=== PATIENT | female | born 1930 | race African-American/Black ===

== ENCOUNTER → 2016-04-05 | Outpatient (CLI) | payer MEDICARE ==
[2014-12-01 16:52] VITALS: BP 165/70
[~2016-04-05] MED LIST: ASPI81TA2 PO; GUAI600T38 PO; LOSA100T6 PO; TERB250T8 PO; VITA1CAP PO
--- NOTE | 2016-04-05 16:06 | KCIC ---
Bilateral digital screening mammograms with CAD: HISTORY Routine screening. History of right breast cancer with lumpectomy. COMPARISON Comparison is made to previous studies dated 04/05/2015, 04/15/2014 and 03/31/2013. FINDINGS Breast density category C. The skin and nipples show no abnormalities. No abnormal lymph nodes are seen in the axilla. The breast parenchyma shows heterogeneous density. There are no dominant masses, suspicious calcifications or architectural distortions. Scattered and clustered calcifications are again seen bilaterally but show no significant change. IMPRESSION No evidence of malignancy. Recommend routine annual mammographic screening. This study was interpreted with the benefit of Computerized Aided Detection (CAD). Mammography is not 100% sensitive in detecting breast cancer. Therefore, a self breast exam and a clinical breast exam are very important. A negative mammogram does not negate a clinically suspicious finding and should not result in a delay in biopsying a clinically suspicious abnormality. BI-RADS category 2. Benign. This patient's information has been entered into a reminder system for the patient to be notified with the results of this examination and a target date for her next mammograms. Electronically signed by: Karoline Napier MD (Apr 05, 2016 16:05:04)
== END | disposition home or self-care (01) ==
LOC: KCIC MAMMO 12:35
PROVIDERS: ATTEND Internal Medicine
DX: Z12.31 Encounter for screening mammogram for malignant neoplasm of breast (principal)
CPT/HCPCS: 77052; G0202; 77067

== ENCOUNTER → 2016-07-20 | Outpatient (CLI) | payer MEDICARE ==
[2014-12-01 16:52] VITALS: BP 165/70
--- NOTE | 2016-07-20 16:09 | KCIC ---
Two-view chest. Indication:Reason For StudyReason: DRY COUGH A FEW MONTHS / Spl. Instructions: Hx breast CA / History: FINDINGS: Heart size is normal. Pulmonary vasculature is within normal limits. No pleural effusion or consolidating infiltrate. No pneumothorax. The mediastinal contours are within normal limits. An old compression deformities noted in the lower thoracic spine. IMPRESSION: Negative for evidence of heart failure or pneumonia. Electronically signed by: Jase Tinajero (Jul 20, 2016 16:08:12)
== END | disposition home or self-care (01) ==
LOC: KCIC 15:36
PROVIDERS: ATTEND Internal Medicine
DX: R05 Cough (principal)
CPT/HCPCS: 71020

== ENCOUNTER → 2016-09-10 | Outpatient (CLI) | payer MEDICARE ==
[2014-12-01 16:52] VITALS: BP 165/70
[~2016-09-10] MED LIST changes: +ASPI-630 PO; -ASPI81TA2 PO; -GUAI600T38 PO; +GUAI600T47 PO
--- NOTE | 2016-09-10 16:25 | KCIC ---
Bilateral lower extremity arterial Doppler ultrasound HISTORY: Diminished pulses in both feet. TECHNIQUE: Grayscale color Doppler duplex analysis. FINDINGS: Mild diffuse calcified plaquing is identified from the bilateral common femoral arteries through the runoff vessels bilaterally. No areas of occlusion or high-grade stenosis are identified. Mostly biphasic waveforms are identified bilaterally, with the exception of monophasic waveforms in the deep femoral arteries bilaterally and within the peroneal arteries bilaterally. Small cystic appearing structure within the right popliteal fossa compatible with a Mora's cyst measuring 3.2 cm diameter. IMPRESSION: 1. Generalized atherosclerotic disease, without evidence of arterial occlusion. 2. Small right Mora's cyst incidentally noted. Electronically signed by: Heri Dc MD (09/10/2016 4:22 PM)
== END | disposition home or self-care (01) ==
LOC: KCIC US 14:23
PROVIDERS: ATTEND Internal Medicine
DX: R09.89 Other specified symptoms and signs involving the circulatory and respiratory systems (principal)
CPT/HCPCS: 93925

== ENCOUNTER → 2017-04-11 | Outpatient (CLI) | payer MEDICARE | END | disposition home or self-care (01) | LOC: KCIC MAMMO 12:38 | DX: Z12.31 Encounter for screening mammogram for malignant neoplasm of breast (principal) | CPT/HCPCS: 77063; 77067 ==

== ENCOUNTER → 2017-08-28 | Outpatient (CLI) | payer MEDICARE | END | disposition home or self-care (01) | LOC: RAD 16:15 | DX: M79.89 Other specified soft tissue disorders (principal) | CPT/HCPCS: 73610 ==

== ENCOUNTER → 2018-04-17 | Outpatient (CLI) | payer MEDICARE ==
[2017-05-23 14:54] VITALS: BP 145/55
[~2018-04-17] MED LIST changes: +ATEN25TA PO; +CHOL10003 PO; +CYAN10005 PO; +FOLI1TAB16 PO; +HYDR-2145 PO; +HYDR12.58 PO; +LOSA100T14 PO; -LOSA100T6 PO; +OMEP20TA63 PO; +POTA10TA12 PO; +POTA20TA4 PO; +POTA20TA82 PO; +TERB250T11 PO; -TERB250T8 PO
--- NOTE | 2018-04-17 17:28 | KCIC ---
Bilateral digital screening mammograms with 3-D tomosynthesis: Reason for examination: Routine screening. History of right breast cancer with lumpectomy, chemotherapy and radiation therapy in 2010. Comparison is made to previous studies dated 04/11/2017 and 04/05/2016. Bilateral mammograms in CC and oblique projections were obtained with 2-D imaging and 3-D tomosynthesis imaging on a Siemens Inspiration unit and reviewed on the workstation. Interpretation was made with the benefit of CAD. The skin and nipples show no abnormalities. No abnormal axillary lymph nodes are seen. The breast parenchyma is heterogeneously dense. (Breast density: Category C.) There are postop changes in the right breast. There appears to be a nodular density present posterior centrally superior to the nipple line in the left breast on oblique view laterally. Recommend further evaluation with ultrasound. There are no other new dominant masses, suspicious calcifications or architectural distortion. Benign scattered and clustered calcifications are present. Impression: Postop changes in the right breast. Small nodular density suggested at approximately the 2:30 B position of the left breast. Recommend further evaluation with ultrasound. Your patient's mammogram demonstrates that she has dense breast tissue (breast density category C or D), which could hide abnormalities, and if she has other risk factors for breast cancer that have been identified, she might benefit from supplemental screening tests that may be suggested by you as her ordering physician. Dense breast tissue, in and of itself, is a relatively common condition. Therefore, this information is not provided to cause undue concern, but rather to raise your awareness and to promote discussion with your patient regarding the presence of other risk factors, in addition to dense breast tissue. Your patient's mammography results will be sent to her. BI-RAD Category 0: Incomplete. Needs additional imaging evaluation. "Our facility is accredited by the [employer] Mammography Program." This patient's information has been entered into a reminder system for the patient to be notified with the results of her examination and a target date for the next mammogram. Electronically signed by: Ivania Napier MD (04/17/2018 5:24 PM) [id number]
== END | disposition home or self-care (01) ==
LOC: KCIC MAMMO 14:39
PROVIDERS: ATTEND Internal Medicine
DX: Z12.31 Encounter for screening mammogram for malignant neoplasm of breast (principal); Z85.3 Personal history of malignant neoplasm of breast
CPT/HCPCS: 77063; 77067

== ENCOUNTER → 2018-05-01 | Outpatient (CLI) | payer MEDICARE ==
[2017-05-23 14:54] VITALS: BP 145/55
--- NOTE | 2018-05-01 14:48 | KCIC ---
Left breast ultrasound: Reason for examination: Nodular density on screening mammogram. Comparison is made to mammographic exam dated 04/17/2018. Ultrasound examination was performed in the area of mammographic concern. In the 3:00 position 4 cm from the nipple, there is a small slightly lobulated irregular-appearing nodule measuring 5.2 x 2.7 cm in greatest dimension. In the 2:00 position 3 cm from the nipple, there is also a hypoechoic lobulated nodule measuring approximately 7.8 mm in greatest dimension. No other focal lesions are seen. There is a 1.7 cm lymph node in the left axilla which is osseous normal hilum. IMPRESSION: Small nodules at the 2:00 and 3:00 positions of the left breast lobulated slightly irregular margins. Abnormal appearing 1.7 cm lymph node in left axilla. Recommend ultrasound guided biopsies. BI-RADS Category 4: Suspicious. These findings were discussed with the patient and the patient's physician, Dr. Rivera, was notified about these findings on 05/01/2018 at 2:45 PM. "Our facility is accredited by the [employer] Mammography [employer]." This patient's information has been entered into a reminder system for the patient to be notified with the results of her examination and a target date for the next mammogram. Electronically signed by: Ivania Napier MD (05/01/2018 2:44 PM) [facility]
== END | disposition home or self-care (01) ==
LOC: KCIC US 12:48
PROVIDERS: ATTEND Internal Medicine
DX: N63.21 Unspecified lump in the left breast, upper outer quadrant (principal); I10 Essential (primary) hypertension; J45.909 Unspecified asthma, uncomplicated; M19.90 Unspecified osteoarthritis, unspecified site; Z85.3 Personal history of malignant neoplasm of breast
CPT/HCPCS: 76641

== ENCOUNTER → 2018-05-29 | Outpatient (CLI) | payer MEDICARE ==
[2017-05-23 14:54] VITALS: BP 145/55
[~2018-05-29] MED LIST changes: +FAMO-63 PO; +LIDOCAINE 1% Multi-Dose 20 ML VIAL. INJ ONE; +LIDOCAINE 1%/EPI 1:100,000 20 ML VIAL. INJ ONE; +LIDOCAINE 2%/EPI 1:100,000 20 ML VIAL. IJ ONE
--- NOTE | 2018-06-03 16:08 | PATHOLOGY ---
[facility] Accession Number: [id number] . 01 Material submitted: . PART A: LEFT BREAST, 3:00, 4CFN PART B: LEFT BREAST, 2:00, 3CFN PART C: LEFT AXILLA LYMPH NODE . 01 Clinical history: . A. Left breast mass B. Left breast mass C. Left axilla lymph node . 02 Diagnosis: A. Breast tissue, left breast mass 3:00 needle biopsies: - Ancient fibroadenoma. - Stromal fibrosis and focal mild duct ectasia. . B. Breast tissue, left breast mass 2:00 needle biopsies: - Ancient fibroadenoma. - Focal stromal fibrosis and lobular chronic inflammation. . C. Lymph node and adipose tissue, left axillary lymph node biopsy: - Reactive lymphoid hyperplasia. See comment. (JPM/db/pit; 05/30/2018) LBQ/06/03/2018 . 02 Comment: Sections of the left breast mass at 3:00 needle biopsy reveal an ancient fibroadenoma. Sections of the left breast mass at 2:00 needle biopsy also reveal an ancient fibroadenoma. Sections of the left axillary lymph node biopsy reveal lymph node. There is preservation of the lymph node architecture. There are lymphoid follicles present containing germinal centers. The germinal centers are surrounded by a mantle of small lymphocytes. The paracortex is composed predominantly of small lymphocytes having a high N/C ratio and rounded to slightly irregular nuclei. There are no granulomas. There is no morphologic evidence of metastatic carcinoma. A panel of immunoperoxidase stains is obtained on block C1 and yield the following results: . AE1/AE3: No evidence of metastatic carcinoma. CD20: Lymphoid follicles and germinal centers positive; small population of small lymphocytes in interfollicular areas positive. CD3: Paracortical lymphocytes positive; small population of lymphocytes within germinal centers positive. CD5: Paracortical lymphocytes positive; small population of lymphocytes within germinal centers positive, similar to CD3. CD10: Germinal center lymphocytes positive. BCL6: Germinal center lymphocytes positive. BCL2: Paracortical lymphocytes positive; germinal center lymphocytes negative. BD23: Follicular dendritie meshwork positive. Cyclin D1: Lymphoid cells negative. . The morphologic and immunophenotypic findings are supportive of the diagnosis of reactive lymphoid hyperplasia. The case is also examined by Dr. Ami Yoo, who concurs with the diagnosis. (JPM:[facility] 06/03/2018) . 02 Electronically signed: . Uzair Villalobos MD, Pathologist NPI- [id number] . 01 Gross description: . A. Received in formalin labeled "Danya Cherry, left breast 3:00, 4 CFN," are multiple needle cores of yellow-whittington fibrofatty tissue measuring 2.4 x 2.7 x 0.4 cm in aggregate dimensions. The tissue is submitted in its entirety in cassette A1 through A3. The cold ischemic time is 3 minutes. The total formalin fixation time is 10 hours and 15 minutes. . . B. Received in formalin labeled "Danya Cherry, left breast 2:00, 3 CFN," are multiple needle cores of yellow-whittington fibrofatty tissue measuring 2.0 x 1.5 x 0.3 cm in aggregate dimensions. The tissue is submitted in its entirety in cassette B1 through B3. The cold ischemic time is 3 minutes. The total formalin fixation time is 10 hours and 5 minutes. . C. Received in formalin labeled "Danya Cherry, left axilla LN," is a single needle core of munson soft tissue measuring 1.2 cm in length and less than 0.1 cm in diameter. The tissue is submitted in its entirety in cassette C1. Additionally received in the same container are multiple fragments of needle cores of munson soft tissue measuring 0.5 x 0.1 x 0.1 cm in aggregate dimensions. The specimen is filtered and entirely submitted in cassette C2. (TSD; 05/29/2018) TOB/TOB . 02 Pathologist provided ICD-10: D24.2, N60.32, N61.0 . 02 CPT . 539809, 943778, [id number] Specimen Comment: A courtesy copy of this report has been sent to Specimen Comment: [phone], , . Specimen Comment: Report sent to , and Specimen Comment: A duplicate report has been generated due to demographic updates. [facility]formed at: [facility] [address], [place] [id number] MD Kapil Flor MD Phone: [phone] [facility]formed at: [facility] [address] [place], [place] [id number] MD Uzair Villalobos MD Phone: [phone]
--- NOTE | 2018-06-12 11:17 | RAD ---
ltrasound-guided left breast biopsy #1, 05/29/2018: History: Suspicious breast lesions A prior study demonstrated a small hypoechoic nodule at the 3:00 location located approximately 4 cm with the nipple. Under local anesthesia, aseptic conditions and sonographic guidance the Suros ATEC biopsy instrument was passed into the posterior aspect of this process via a lateral approach. Multiple 12- gauge vacuum-assisted core samples were obtained and sent to pathology for evaluation. A cylindrical shaped biopsy marker was deposited at the biopsy site. The biopsy instrument was then removed and hemostasis obtained. Ultrasound-guided left breast biopsy #2, 05/29/2018: The previous ultrasound study demonstrated a larger hypoechoic nodule at the 2: 00 location approximately 3 cm from the nipple. Under local anesthesia, aseptic conditions and sonographic guidance we targeted this lesion. The Suros ATEC biopsy instrument was passed into this lesion and multiple 12-gauge vacuum- assisted core samples were obtained. They were sent to pathology for evaluation. A T-shaped biopsy marker was deposited the biopsy site. The biopsy instrument was then removed and hemostasis obtained. Ultrasound-guided left axillary lymph node biopsy, 05/29/2018: Previous studies demonstrated a mildly enlarged left axillary lymph node demonstrating absence of a normal fatty hilum. Under local anesthesia, aseptic conditions and sonographic guidance three 18-gauge core samples were obtained from this node and sent to pathology for evaluation. A biopsy marker was then deposited within the noted as requested. Hemostasis was then obtained. Two-view postprocedural digital mammograms were then obtained to document position of the biopsy markers. The patient tolerated the procedures well and left the department in good condition. Note: The subsequent pathology report indicated that the 2 breast biopsies both demonstrated fibroadenomas. The biopsied lymph node demonstrated reactive lymphoid hyperplasia without evidence of malignancy. These are considered to be concordant findings. [facility]
== END | disposition home or self-care (01) ==
LOC: US 12:15
PROVIDERS: ATTEND Surgery
DX: D24.2 Benign neoplasm of left breast (principal); N60.32 Fibrosclerosis of left breast; N60.42 Mammary duct ectasia of left breast; N61.0 Mastitis without abscess; Z88.8 Allergy status to other drugs, medicaments and biological substances; R59.0 Localized enlarged lymph nodes; I11.9 Hypertensive heart disease without heart failure
CPT/HCPCS: 19083; 19084; 38505; 76942; 77065; 88305; C1713; 10005; 19081; 19082

== ENCOUNTER 2018-07-09 11:00 | Emergency (ER) | payer MEDICARE ==
[~2018-07-09] VITALS: Ht 162.6 cm; Wt 59.0 kg
[~2018-07-09 11:00] MED LIST changes: -FAMO-63 PO; -LIDOCAINE 1% Multi-Dose 20 ML VIAL. INJ ONE; -LIDOCAINE 1%/EPI 1:100,000 20 ML VIAL. INJ ONE; -LIDOCAINE 2%/EPI 1:100,000 20 ML VIAL. IJ ONE
[2018-07-09] MEDS ORDERED: FAMOTIDINE 20 MG/2 ML VIAL IVP ONE (11:30)
[2018-07-09] MEDS ORDERED: ASPIRIN 325 MG TABLET PO ONE (11:30)
--- NOTE | 2018-07-09 11:37 | EKG ---
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
[2018-07-09 11:46] LABS: BASO % 1 % (0-3); EOS % 1 % (0-3); HEMATOCRIT 32.7 % (36.0-47.0); HEMOGLOBIN 10.8 g/dL (12.0-15.5); LYMPH # 1.1 x10^3/uL (1.0-4.8); LYMPH % 22 % (24-48); MEAN CORPUSCULAR HEMOGLOBIN 31 pg (25-35); MEAN CORPUSCULAR HGB CONC 33 g/dL (31-37); MEAN CORPUSCULAR VOLUME 93 fL (79-100); MONO # 0.4 x10^3/uL (0.0-1.1); MONO % 7 % (0-9); NEUT # 3.5 x10^3uL (1.8-7.7); NEUT % 69 % (31-73); PLATELET COUNT 255 x10^3/uL (140-400); RED BLOOD COUNT 3.52 x10^6/uL (3.50-5.40)
[2018-07-09 11:57] LABS: CALCIUM 9.3 mg/dL (8.5-10.1); CREATININE 0.8 mg/dL (0.6-1.0); GFR 82.3; POTASSIUM 3.5 mmol/L (3.5-5.1)
--- NOTE | 2018-07-09 11:58 | PHYS DOC ---
Past Medical History Past Medical History: Asthma, Cancer, Hypertension, Other Additional Past Medical Histor: BREAST CANCER TREATED W/ RADIATION & CHEMO Past Surgical History: Other Additional Past Surgical Histo: LUMPECTOMY RIGHT BREAST Alcohol Use: None Drug Use: None Adult General Chief Complaint Chief Complaint: CHEST PAIN HPI HPI Patient is a 88 year old female who presents with chest pain. Patient states that she developed chest pain which woke her up from sleep around three o'clock in the morning yesterday. Patient reports that the pain is located midsternal and under her right breast. Patient states that the pain is intermittent and lasts for about 20 to 30 minutes at a time and then it subsides on its own. Patient does not currently have any pain but states that the pain can get up to a 10/10 at its worst. Patient states that the pain is worse with movement. Denies any alleviating factors or radiation of the pain. Patient also reports upper abdomial pain. Patient states that she has a history of acid reflux and thought her symptoms may be due to her reflux, however, she took her Prilosec without any relief. Denies palpitations, nausea, vomiting, shortness of breath, and lower extremity edema. Review of Systems Review of Systems Constitutional: Denies fever or chills Eyes: Denies change in visual acuity, or eye pain HENT: Denies nasal congestion or sore throat Respiratory: Denies shortness of breath. Reports chronic dry cough. Cardiovascular: Reports chest pain. Denies palpitations GI: Denies nausea, vomiting, or diarrhea : Denies dysuria or hematuria Musculoskeletal: Denies back pain. Reports chronic joint pain. Integument: Denies rash or skin lesions Neurologic: Denies headache, focal weakness or sensory changes Complete systems were reviewed and found to be within normal limits, except as documented in this note. Current Medications Current Medications Current Medications Medications (Trade) Dose Ordered Sig/Shiraz Start Time Stop Time Status Last Admin Dose Admin Aspirin (Matilde Aspirin) 325 mg 1X ONCE 07/09/18 11:30 07/09/18 11:34 DC 07/09/18 11:50 325 MG Famotidine (Pepcid Vial) 20 mg 1X ONCE 07/09/18 11:30 07/09/18 11:34 DC 07/09/18 11:50 20 MG Allergies Allergies Allergies Coded Allergies Type Severity Reaction Last Updated Verified lisinopril Allergy Intermediate COUGH 05/22/17 Yes nifedipine Allergy Intermediate LEG EDEMA 05/22/17 Yes Physical Exam Physical Exam Constitutional: Well developed, well nourished, no acute distress, non-toxic appearance. HENT: Normocephalic, atraumatic, oropharynx moist, nose normal. Eyes: PERRL, conjunctiva normal, no discharge. Neck: Normal range of motion, no tenderness, supple, no stridor. Cardiovascular: Heart rate regular rhythm, no murmur. No chest wall tenderness on palpation. Lungs & Thorax: Bilateral breath sounds clear to auscultation. Abdomen: Soft, tenderness of bilateral upper abdominal quadrants on palpation. No rebound, guarding, or rigidity. Skin: Warm, dry, no rash. Back: No tenderness, no CVA tenderness. Extremities: No tenderness, ROM intact, no edema. Neurologic: Alert and oriented X3, normal motor function, normal sensory function, no focal deficits noted. Psychologic: Affect normal. Speech normal. Current Patient Data Vital Signs Vital Signs Date Time Temp Pulse Resp B/P (MAP) Pulse Ox O2 Delivery O2 Flow Rate FiO2 07/09/18 14:28 68 24 171/72 (105) 99 07/09/18 11:00 97.8 Room Air 97.8 Lab Values Laboratory Tests Test 07/09/18 11:32 07/09/18 13:00 White Blood Count 5.0 x10^3/uL (4.0-11.0) Red Blood Count 3.52 x10^6/uL (3.50-5.40) Hemoglobin 10.8 g/dL (12.0-15.5) L Hematocrit 32.7 % (36.0-47.0) L Mean Corpuscular Volume 93 fL (79-100) Mean Corpuscular Hemoglobin 31 pg (25-35) Mean Corpuscular Hemoglobin Concent 33 g/dL (31-37) Red Cell Distribution Width 15.0 % (11.5-14.5) H Platelet Count 255 x10^3/uL (140-400) Neutrophils (%) (Auto) 69 % (31-73) Lymphocytes (%) (Auto) 22 % (24-48) L Monocytes (%) (Auto) 7 % (0-9) Eosinophils (%) (Auto) 1 % (0-3) Basophils (%) (Auto) 1 % (0-3) Neutrophils # (Auto) 3.5 x10^3uL (1.8-7.7) Lymphocytes # (Auto) 1.1 x10^3/uL (1.0-4.8) Monocytes # (Auto) 0.4 x10^3/uL (0.0-1.1) Eosinophils # (Auto) 0.0 x10^3/uL (0.0-0.7) Basophils # (Auto) 0.0 x10^3/uL (0.0-0.2) Sodium Level 140 mmol/L (136-145) Potassium Level 3.5 mmol/L (3.5-5.1) Chloride Level 101 mmol/L (98-107) Carbon Dioxide Level 27 mmol/L (21-32) Anion Gap 12 (6-14) Blood Urea Nitrogen 14 mg/dL (7-20) Creatinine 0.8 mg/dL (0.6-1.0) Estimated GFR (Cockcroft-Gault) 82.3 BUN/Creatinine Ratio 18 (6-20) Glucose Level 91 mg/dL (70-99) Calcium Level 9.3 mg/dL (8.5-10.1) Magnesium Level 1.9 mg/dL (1.8-2.4) Total Bilirubin 0.4 mg/dL (0.2-1.0) Aspartate Amino Transferase (AST) 15 U/L (15-37) Alanine Aminotransferase (ALT) 12 U/L (14-59) L Alkaline Phosphatase 63 U/L (46-116) Creatine Kinase 54 U/L (26-192) Creatine Kinase MB (Mass) 0.6 ng/mL (0.0-3.6) Creatine Kinase MB Relative Index % (0-4) Troponin I Quantitative < 0.017 ng/mL (0.000-0.055) < 0.017 ng/mL (0.000-0.055) OZ-Yzr-B-Type Natriuretic Peptide 487 pg/mL (0-449) H Total Protein 7.7 g/dL (6.4-8.2) Albumin 3.5 g/dL (3.4-5.0) Albumin/Globulin Ratio 0.8 (1.0-1.7) L Lipase 108 U/L (73-393) Laboratory Tests 07/09/18 11:32 Laboratory Tests 07/09/18 11:32 EKG EKG @1110 NSR at 76bpm, NO ST elevation Radiology/Procedures Radiology/Procedures PROCEDURE: CHEST PA & LATERAL Chest, 2 views, 07/09/2018: HISTORY: Chest pain Comparison is made to a study from 05/21/2017. The heart is mildly enlarged. There is calcific plaquing the aorta. The pulmonary vascularity is normal. There is mild unchanged blunting of the right lateral costophrenic angle probably due to scarring. The posterior costophrenic angles are sharp without evidence of pleural fluid. No pulmonary infiltrate is seen. The bony structures are demineralized. A lower thoracic vertebral compression fracture at approximately T11 is unchanged since the CT study from 05/22/2017. IMPRESSION: 1. Mild cardiomegaly and aortic atherosclerosis 2. Mild right basilar scarring. 3. No acute infiltrates. Electronically signed by: Omid Massey MD (07/09/2018 12:00 PM) [facility] Course & Med Decision Making Course & Med Decision Making Patient is an 88 year old female who presents to the ED for chest pain. Patient given 325mg Aspirin PO and 20mg Pepcid IV. Heart score calculated to be 3. Pertinent Labs and Imaging studies reviewed. ( See chart for details). First and second troponin's noted to be negative. Offered patient admission, however, patient feels comfortable going home after second troponin came back negative. Patient agrees to follow up with cardiology outpatient. Patient stable for discharge with outpatient follow-up with PCP. Discussed findings and plan with patient and family, who acknowledge understanding and agreement. Dragon Disclaimer Dragon Disclaimer This electronic medical record was generated, in whole or in part, using a voice recognition dictation system. Departure Departure Impression: Primary Impression: Chest pain Disposition: HOME, SELF-CARE Condition: STABLE Referrals: HAZEL JOHNSON MD (PCP) COMFORT HWANG MD Patient Instructions: Chest Pain (Nonspecific), [id number] Scripts Famotidine (PEPCID) 20 Mg Tablet 20 MG PO BID, #20 TAB Prov: HAZEL HENDRICKSON DO 07/09/18 Problem Qualifiers Primary Impression: Chest pain Chest pain type: unspecified Qualified Codes: R07.9 - Chest pain, unspecified HAZEL HENDRICKSON DO Jul 09, 2018 11:58
[2018-07-09 12:02] LABS: ALBUMIN 3.5 g/dL (3.4-5.0); ALBUMIN/GLOBULIN RATIO 0.8 (1.0-1.7); MAGNESIUM 1.9 mg/dL (1.8-2.4); TOTAL BILIRUBIN 0.4 mg/dL (0.2-1.0); TOTAL PROTEIN 7.7 g/dL (6.4-8.2)
--- NOTE | 2018-07-09 12:03 | RAD ---
Chest, 2 views, 07/09/2018: HISTORY: Chest pain Comparison is made to a study from 05/21/2017. The heart is mildly enlarged. There is calcific plaquing the aorta. The pulmonary vascularity is normal. There is mild unchanged blunting of the right lateral costophrenic angle probably due to scarring. The posterior costophrenic angles are sharp without evidence of pleural fluid. No pulmonary infiltrate is seen. The bony structures are demineralized. A lower thoracic vertebral compression fracture at approximately T11 is unchanged since the CT study from 05/22/2017. IMPRESSION: 1. Mild cardiomegaly and aortic atherosclerosis 2. Mild right basilar scarring. 3. No acute infiltrates. Electronically signed by: Omid Massey MD (07/09/2018 12:00 PM) [facility]
[2018-07-09 12:12] LABS: CREATINE KINASE 54 U/L (26-192)
[2018-07-09 14:28] VITALS: BP 171/72
[2018-07-09] MEDS ORDERED: FAMO-63 PO (14:56)
== END 2018-07-09 15:05 | disposition home or self-care (01) ==
LOC: ER 11:00
DX: R07.89 Other chest pain (principal); J45.909 Unspecified asthma, uncomplicated; I10 Essential (primary) hypertension; Z79.82 Long term (current) use of aspirin; Z88.8 Allergy status to other drugs, medicaments and biological substances
CPT/HCPCS: 36415; 71046; 80053; 82553; 83690; 83735; 83880; 84484; 85025; 93005; 96374; 99285; J3490

== ENCOUNTER → 2019-02-10 | Outpatient (CLI) | payer MEDICARE ==
[2018-10-24 15:00] VITALS: BP 145/79
[~2019-02-10] MED LIST changes: +AMLO2.5T5 PO; +ATOR20TA58 PO; +CARV25TA2 PO; +CLOP75TA PO; +CYAN-25 PO; -CYAN10005 PO; +FAMO-63 PO; +RANI-376 PO
--- NOTE | 2019-02-10 13:08 | CARD ---
MR#: [id number] Date of Study: 02/10/2019 Ordering Physician: COMFORT HWANG, Referring Physician: COMFORT HWANG, Tech: Roxy Mcbride MALLIKA APPROVED REPORT EXAM: Two-dimensional and M-mode echocardiogram with Doppler and color Doppler. Other Information Quality : Good INDICATION Chest Pain 2D DIMENSIONS RVDd2.8 (2.9-3.5cm)Left Atrium(2D)3.8 (1.6-4.0cm) IVSd1.1 (0.7-1.1cm)Aortic Root(2D)2.5 (2.0-3.7cm) LVDd4.5 (3.9-5.9cm)LVOT Diameter1.9 (1.8-2.4cm) PWd1.0 (0.7-1.1cm)LVDs3.7 (2.5-4.0cm) FS (%) 18.3 %SV34.7 ml LVEF(%)38.1 (>50%) Aortic Valve AoV Peak Balbir.140.1cm/sAoV VTI22.6cm AO Peak GR.7.8mmHgLVOT Peak Balbir.82.4cm/s AO Mean GR.4mmHgAVA (VMAX)1.64cm2 AI P 1/2 Qdok842wd Mitral Valve MV E Xdzwzgfg463.1cm/sMV DECEL BVUH529wl MV A Znxlbhbb53.1cm/sE/A Ratio1.5 Tricuspid Valve TR P. Rjgsgpda049lb/sRAP TOAMOYYY8ybUh TR Peak Gr.75tuVtOKBS94hlWv Pulmonary Vein S1 Qvwliakf071.1cm/sD2 Xhhanilc46.9cm/s LEFT VENTRICLE The left ventricle is normal size. There is normal left ventricular wall thickness. The systolic func tion is mildly to moderately impaired. EF 40-45% There is global hypokinesis of the left ventricle. T echnically difficult to determine wall motion due to atrial fibrillation. Tissue Doppler imaging reve als moderate left ventricular diastolic dysfunction. RIGHT VENTRICLE The right ventricle is normal size. The right ventricular systolic function is normal. ATRIA The left atrium size is normal. The right atrium size is normal. The interatrial septum is intact wit h no evidence for an atrial septal defect or patent foramen ovale as noted on 2-D or Doppler imaging. AORTIC VALVE The aortic valve is mildly thickened but opens well. Doppler and Color Flow revealed mild to moderate eccentric aortic regurgitation. There is no significant aortic valvular stenosis. MITRAL VALVE The mitral valve is thickened but opens well. There is no evidence of mitral valve prolapse. There is no mitral valve stenosis. Doppler and Color-flow revealed severe mitral regurgitation. TRICUSPID VALVE The tricuspid valve is normal in structure and function. Doppler and Color Flow revealed moderate tri cuspid regurgitation. There is moderate-severe pulmonary hypertension. The PA pressure was estimated at 62 mmHg. There is no tricuspid valve stenosis. PULMONIC VALVE The pulmonary valve is normal in structure and function. Doppler and Color Flow revealed mild pulmoni c valvular regurgitation. There is no pulmonic valvular stenosis. GREAT VESSELS The aortic root is normal in size. The ascending aorta is normal in size. The IVC is normal in size a nd collapses >50% with inspiration. PERICARDIAL EFFUSION There is no evidence of significant pericardial effusion. Critical Notification Critical Value: No <Conclusion> The systolic function is mildly to moderately impaired. EF 40-45% There is global hypokinesis of the left ventricle. Technically difficult to determine wall motion due to atrial fibrillation. Doppler and Color Flow revealed mild to moderate eccentric aortic regurgitation. Doppler and Color-flow revealed severe mitral regurgitation. Doppler and Color Flow revealed moderate tricuspid regurgitation. There is moderate-severe pulmonary hypertension. The PA pressure was estimated at 62 mmHg. Signed by : Gus Vasquez, Electronically Approved : 02/10/2019 13:07:34
== END | disposition home or self-care (01) ==
LOC: ECHO 10:48
PROVIDERS: ATTEND Internal Medicine Cardiovascular Disease
DX: I08.8 Other rheumatic multiple valve diseases (principal); I48.91 Unspecified atrial fibrillation
CPT/HCPCS: 93306

== ENCOUNTER → 2019-04-22 | Outpatient (CLI) | payer MEDICARE ==
[2018-10-24 15:00] VITALS: BP 145/79
[~2019-04-22] MED LIST changes: -POTA20TA82 PO
--- NOTE | 2019-04-24 06:42 | RAD ---
MR#: [id number] Date of Study: 04/22/2019 Ordering Physician: COMFORT HWANG, Referring Physician: COMFORT HWANG, Tech: NISA Osuan, RDSC, t APPROVED REPORT Patient Location: OUT-PATIENT Indications Rest Pain: Risk Factors Hypertension VELOCITY AND DOPPLER WAVEFORM ANALYSIS RIGHT cm/secWaveformSeverity LEFT cm/secWaveform Severity pCFA 128.3BiphasicpCFA 127.3Biphasic Prof Fem Art. 224.1Prof Fem Art. 94.7 Fem Art Prox. 100.9BiphasicFem Art Prox. 79.5Biphasic Fem Art Mid. 131.4BiphasicFem Art Mid. 103.4Biphasic Fem Art Dist. 124.9BiphasicFem Art Dist. 113.8Biphasic Pop Art(Fossa) 101.8BiphasicPop Art(AK) 88.2Biphasic TSO Dist. 68.0BiphasicPTA Dist. 76.6Biphasic Per Art Dist.63.6BiphasicPer Art Dist.80.3Biphasic ROSE Dist. 61.9BiphasicATA Dist. 111.1Biphasic DPA 39BiphasicDPA 49Biphasic Findings Grayscale images of the bilateral lower extremity arterial vessels demonstrate mild diffuse intimal h yperplasia and diffuse plaque. Incidental note is made of bilateral popliteal fossa Mora's cyst measuring approximately 4 x 1 cm. Spectral waveforms are biphasic throughout the lower extremity arterial course. There is three-vessel runoff below the knee bilaterally. No focal high-grade stenosis is identified. Critical Notification Critical Value: No <Conclusion> 1. No significant bilateral lower extremity arterial disease with three-vessel runoff. 2. Incidental note is made of bilateral popliteal fossa Mora's cyst Signed by : Gus Vasquez, Electronically Approved : 04/24/2019 06:41:48
== END | disposition home or self-care (01) ==
LOC: US 09:29
PROVIDERS: ATTEND Internal Medicine Cardiovascular Disease
DX: I70.293 Other atherosclerosis of native arteries of extremities, bilateral legs (principal); M71.22 Synovial cyst of popliteal space [Baker], left knee; M71.21 Synovial cyst of popliteal space [Baker], right knee
CPT/HCPCS: 93925

== ENCOUNTER → 2019-05-22 | Outpatient (CLI) | payer MEDICARE ==
[2018-10-24 15:00] VITALS: BP 145/79
--- NOTE | 2019-05-22 15:05 | KCIC ---
EXAM: Bilateral digital screening mammogram with tomosynthesis. HISTORY: 89-year-old female presents for screening mammography. TECHNIQUE: Full-field digital craniocaudal and mediolateral oblique 2D and 3D tomosynthesis images of both breasts are obtained for evaluation. Computer aided detection with DropmysiteD software version 9.3 was applied. COMPARISON: 04/17/2018 BREAST PARENCHYMAL DENSITY: Level C - Heterogeneously dense. FINDINGS: There has been slight interval increase in nodularity within the posterior 11:00 position of the right breast containing clustered microcalcifications. There additional areas of nodularity and asymmetry which are stable in appearance. There are multiple scattered and clustered microcalcifications which are not significantly changed. There are biopsy clips. IMPRESSION: BI-RADS Category 0: Additional imaging needed. RECOMMENDATION: Further evaluation with a right breast sonogram is recommended to assess nodularity at the posterior 11:00 position. If your mammogram demonstrates that you have dense breast tissue, which could hide abnormalities, and if you have other risk factors for breast cancer that have been identified, you might benefit from supplemental screening tests that may be suggested by your ordering physician. Dense breast tissue, in and of itself, is a relatively common condition. This information is not provided to cause undue concern, but rather to raise your awareness and to promote discussion with your physician regarding the presence of other risk factors, in addition to dense breast tissue. A report of your mammography results will be sent to you and your physician. You should contact your physician if you have any questions or concerns regarding this report. Mammography is a sensitive method for finding small breast cancers, but it does not detect them all and is not a substitute for careful clinical examination. A negative mammogram does not negate a clinically suspicious finding and should not result in delay in biopsying a clinically suspicious abnormality. PQRS compliance statement - Patient information was entered into a reminder system with a target due date for the next mammogram. "Our facility is accredited by the [employer] Mammography [employer]." Electronically signed by: Cassy Gomez MD (05/22/2019 3:02 PM) [email or web address]
== END ==
LOC: KCIC MAMMO 13:22
PROVIDERS: ATTEND Family Medicine
DX: Z12.31 Encounter for screening mammogram for malignant neoplasm of breast (principal)
CPT/HCPCS: 77063; 77067

== ENCOUNTER → 2019-05-26 | Outpatient (CLI) | payer MEDICARE ==
[2018-10-24 15:00] VITALS: BP 145/79
--- NOTE | 2019-05-26 16:00 | KCIC ---
Right breast ultrasound: Reason for examination: Clustered calcifications with possible associated nodule. Comparison is made to mammographic exam dated 05/14/2019. Ultrasound examination of the right breast and right axilla was performed. There are calcified nodules at the 10:00 position 4 cm from the nipple corresponding to the calcified degenerated fibroadenoma seen mammographically. There are some fibrocystic changes and ductal ectasia at the 11:00 position 2 cm from the nipple which have a benign appearance. In the area of mammographic concern, a discrete abnormality is not identified. IMPRESSION: Clustered calcifications with associated nodularity at the 10:00 position posteriorly in the right breast mammographically. A nodule was not seen at this site sonographically but further evaluation with stereotactic biopsy of the calcifications is recommended. BI-RADS Category 4: Suspicious. These findings were discussed with the patient and patient's physician, Dr. Leatha Vanegas, was notified about these findings on 05/26/2019 at 1555. "Our facility is accredited by the [employer] Mammography Program." Electronically signed by: Ivania Napier MD (05/26/2019 3:57 PM) [email or web address]
--- NOTE | 2019-05-26 17:06 | KCIC ---
Pelvic ultrasound HISTORY: Postmenopausal bleeding. COMPARISON: None. Transabdominal scan: The uterus and ovaries are poorly seen. Endovaginal scan: Uterus measures 5.1 x 2.0 x 4.0 cm. Endometrial stripe measures 1 mm. The cervix appears thickened and heterogeneous with some reflectors suggesting calcification. There may also be a small amount of fluid in the cervix. The right and left ovaries are not visualized. Mild free pelvic fluid in the cul-de-sac. IMPRESSION: 1. Thick and heterogeneous appearance of the cervix with calcifications and possibly mild fluid. Significance uncertain, infectious or inflammatory etiology is possible, and a mass is difficult to exclude. Consider gynecologic consultation. 2. Nonvisualization of right and left ovaries. Electronically signed by: Heri Dc MD (05/26/2019 5:03 PM) [id number]
== END | disposition home or self-care (01) ==
LOC: KCIC US 10:09
PROVIDERS: ATTEND Family Medicine
DX: N63.11 Unspecified lump in the right breast, upper outer quadrant (principal); N88.8 Other specified noninflammatory disorders of cervix uteri; D24.1 Benign neoplasm of right breast; N60.41 Mammary duct ectasia of right breast; Z85.3 Personal history of malignant neoplasm of breast
CPT/HCPCS: 76641; 76830; 76856

== ENCOUNTER 2019-11-04 14:30 | Emergency (ER) | payer MEDICARE ==
[~2019-11-04] VITALS: Ht 165.1 cm; Wt 56.8 kg
[~2019-11-04 14:30] MED LIST changes: -TERB250T11 PO; +TERB250T84 PO
[2019-11-04] MEDS ORDERED: LABETALOL 20 MG/4 ML DISP.SYRIN. IVP ONE (18:00)
--- NOTE | 2019-11-04 18:12 | RAD ---
INDICATION: Reason: chest pain / Spl. Instructions: / History: COMPARISON: September 2018 FINDINGS: Single view of chest obtained. Calcific atherosclerosis with mild enlargement of the cardiac silhouette. Mild interstitial opacities bilaterally with more focal component at right lung base IMPRESSION: * Mild interstitial opacities bilaterally with more focal component in the right lung base. This could be seen with mild edema or interstitial infiltrate. Electronically signed by: Ish Frias MD (11/04/2019 6:09 PM) [id number]
[2019-11-04 18:13] LABS: BASO % 1 % (0-3); EOS # 0.1 x10^3/uL (0.0-0.7); EOS % 1 % (0-3); HEMATOCRIT 34.1 % (36.0-47.0); HEMOGLOBIN 11.4 g/dL (12.0-15.5); LYMPH # 1.3 x10^3/uL (1.0-4.8); LYMPH % 21 % (24-48); MEAN CORPUSCULAR HEMOGLOBIN 32 pg (25-35); MEAN CORPUSCULAR HGB CONC 34 g/dL (31-37); MEAN CORPUSCULAR VOLUME 94 fL (79-100); MONO # 0.6 x10^3/uL (0.0-1.1); MONO % 9 % (0-9); NEUT # 4.2 x10^3/uL (1.8-7.7); NEUT % 69 % (31-73); PLATELET COUNT 231 x10^3/uL (140-400); RED BLOOD COUNT 3.61 x10^6/uL (3.50-5.40); RED CELL DISTRIBUTION WIDTH 15.6 % (11.5-14.5); WHITE BLOOD COUNT 6.2 x10^3/uL (4.0-11.0)
[2019-11-04 18:24] LABS: BILIRUBIN,URINE NEGATIVE (NEG); CLARITY,URINE CLEAR; COLOR,URINE YELLOW; NITRITE,URINE NEGATIVE (NEG); PH,URINE 6.5 (<5.0-8.0); PROTEIN,URINE NEGATIVE (NEG-TRACE); UROBILINOGEN,URINE 0.2 mg/dL (0.2 mg/dL)
[2019-11-04 18:24] LABS: PROTHROMBIN TIME PATIENT 12.9 SEC (11.7-14.0)
[2019-11-04 18:28] LABS: CALCIUM 9.2 mg/dL (8.5-10.1); CREATININE 0.8 mg/dL (0.6-1.0); GFR 82.1; POTASSIUM 4.1 mmol/L (3.5-5.1)
[2019-11-04 18:34] LABS: ALBUMIN 3.5 g/dL (3.4-5.0); TOTAL BILIRUBIN 0.3 mg/dL (0.2-1.0)
[2019-11-04 18:36] LABS: BACTERIA,URINE MANY /HPF (0-FEW); SQUAMOUS EPITHELIAL CELL,UR MANY /LPF
[2019-11-04 18:37] LABS: RBC,URINE 0 /HPF (0-2); WBC,URINE OCC /HPF (0-4)
[2019-11-04 18:59] LABS: CREATINE KINASE 66 U/L (26-192)
--- NOTE | 2019-11-04 19:05 | RAD ---
INDICATION: Reason: dizzy / Spl. Instructions: / History: COMPARISON: None. TECHNIQUE: Axial CT images obtained through the head without intravenous contrast. One or more of the following individualized dose reduction techniques were utilized for this examination: 1. Automated exposure control; 2. Adjustment of the mA and/or kV according to patient size; 3. Use of iterative reconstruction technique. FINDINGS: No intracranial hemorrhage. No midline shift. Basal cisterns patents. Ventricles and sulci are globally prominent. No acute osseous abnormality. Orbits and paranasal sinuses unremarkable. Scattered foci of low attenuation within the white matter. IMPRESSION: 1. No acute intracranial hemorrhage. 2. Scattered regions of low attenuation within the white matter. Non-specific in nature but frequently secondary to chronic small vessel ischemic disease. 3. Prominence of ventricles and sulci which is frequently secondary to age related volume loss. 4. Partial opacification of the left mastoid air cells. Could be from congestion but would correlate with symptoms to ensure that there is not mastoiditis. Electronically signed by: Ish Frias MD (11/04/2019 7:02 PM) [id number]
--- NOTE | 2019-11-04 19:26 | PHYS DOC ---
Past Medical History Past Medical History: Asthma, Cancer, Hypertension, Other Additional Past Medical Histor: BREAST CANCER TREATED W/ RADIATION & CHEMO (OPAL COATES APRN) Past Surgical History: Other Additional Past Surgical Histo: LUMPECTOMY RIGHT BREAST (OPAL COATES APRN) Smoking Status: Never Smoker Alcohol Use: None Drug Use: None (OPAL COATES APRN) General Adult EDM: Chief Complaint: DIZZY/LIGHT HEADED HPI: HPI: Patient is a 89 year old AA female who presents to the emergency department with complaints of intermittent dizziness and generalized weakness that has been ongoing for the last 3 weeks. Patient states that her blood pressure has been high today with a reported blood pressure of 187/91 at home. Patient states she had been diagnosed with COVID-19 on September 292019 but denies ever having any symptoms that affected her. Denies any chest pain, palpitations, shortness of breath, wheezing, cough, numbness, tingling, weakness, rash, or fever. She currently denies any pain. Patient denies any problems speaking or swallowing. She states that she felt a little uncoordinated this morning but denies any fall or difficulty walking straight. (OPAL COATES [employer]) Review of Systems: Review of Systems: Constitutional: Denies fever or chills; see HPI Eyes: Denies change in visual acuity. [] HENT: Denies nasal congestion or sore throat. [] Respiratory: Denies cough or shortness of breath. [] Cardiovascular: Denies chest pain or edema. [] GI: Denies abdominal pain, nausea, vomiting, or diarrhea. [] : Denies dysuria, increased urinary frequency, or hematuria. [] Musculoskeletal: Denies back pain or joint pain. [] Integument: Denies rash. [] Neurologic: See HPI Endocrine: Denies polyuria or polydipsia. [] Psychiatric: Denies depression or anxiety. [] (OPAL COATES APRN) Heart Score: Risk Factors: Risk Factors: DM, Current or recent (<one month) smoker, HTN, HLP, family history of CAD, obesity. Risk Scores: Score 0 - 3: 2.5% MACE over next 6 weeks - Discharge Home Score 4 - 6: 20.3% MACE over next 6 weeks - Admit for Clinical Observation Score 7 - 10: 72.7% MACE over next 6 weeks - Early Invasive Strategies (OPAL COATES APRN) Current Medications: Current Medications Medications (Trade) Dose Ordered Sig/Shiraz Start Time Stop Time Status Last Admin Dose Admin Labetalol HCl (Normodyne Iv Push) 10 mg 1X ONCE 11/04/19 18:00 11/04/19 18:01 DC (OPAL COATES APRN) Allergies: Allergies: Allergies Coded Allergies Type Severity Reaction Last Updated Verified lisinopril Allergy Intermediate COUGH 05/22/17 Yes nifedipine Allergy Intermediate LEG EDEMA 05/22/17 Yes (OPAL COATES APRN) Physical Exam: PE: Constitutional: Well developed, well nourished, no acute distress, non-toxic appearance. [] HENT: Normocephalic, atraumatic, bilateral external ears normal, oropharynx moist, nose normal. [] Eyes: PERRLA, EOMI, conjunctiva normal, no discharge. [] Neck: Normal range of motion, no stridor. [] Cardiovascular:Heart rate regular rhythm, no murmur [] Lungs & Thorax: Bilateral breath sounds clear to auscultation, Respirations even and unlabored, no retractions, no respiratory distress [] Abdomen: soft, no tenderness, no masses, no pulsatile masses. [] Skin: Warm, dry, no erythema, no rash. [] Back: No tenderness, no CVA tenderness. [] Extremities: No tenderness, no cyanosis, no clubbing, ROM intact, no edema. [] Neurologic: Alert and oriented X 3, normal motor function, normal sensory function, no focal deficits noted. [] Psychologic: Affect normal, judgement normal, mood normal. [] (OPAL COATES APRN) Current Patient Data: Labs: Laboratory Tests Test 11/04/19 17:35 11/04/19 18:06 White Blood Count 6.2 x10^3/uL (4.0-11.0) Red Blood Count 3.61 x10^6/uL (3.50-5.40) Hemoglobin 11.4 g/dL (12.0-15.5) L Hematocrit 34.1 % (36.0-47.0) L Mean Corpuscular Volume 94 fL (79-100) Mean Corpuscular Hemoglobin 32 pg (25-35) Mean Corpuscular Hemoglobin Concent 34 g/dL (31-37) Red Cell Distribution Width 15.6 % (11.5-14.5) H Platelet Count 231 x10^3/uL (140-400) Neutrophils (%) (Auto) 69 % (31-73) Lymphocytes (%) (Auto) 21 % (24-48) L Monocytes (%) (Auto) 9 % (0-9) Eosinophils (%) (Auto) 1 % (0-3) Basophils (%) (Auto) 1 % (0-3) Neutrophils # (Auto) 4.2 x10^3/uL (1.8-7.7) Lymphocytes # (Auto) 1.3 x10^3/uL (1.0-4.8) Monocytes # (Auto) 0.6 x10^3/uL (0.0-1.1) Eosinophils # (Auto) 0.1 x10^3/uL (0.0-0.7) Basophils # (Auto) 0.0 x10^3/uL (0.0-0.2) Prothrombin Time 12.9 SEC (11.7-14.0) Prothrombin Time INR 1.0 (0.8-1.1) Activated Partial Thromboplast Time 30 SEC (24-38) Sodium Level 142 mmol/L (136-145) Potassium Level 4.1 mmol/L (3.5-5.1) Chloride Level 105 mmol/L (98-107) Carbon Dioxide Level 27 mmol/L (21-32) Anion Gap 10 (6-14) Blood Urea Nitrogen 14 mg/dL (7-20) Creatinine 0.8 mg/dL (0.6-1.0) Estimated GFR (Cockcroft-Gault) 82.1 BUN/Creatinine Ratio 18 (6-20) Glucose Level 76 mg/dL (70-99) Calcium Level 9.2 mg/dL (8.5-10.1) Magnesium Level 2.0 mg/dL (1.8-2.4) Total Bilirubin 0.3 mg/dL (0.2-1.0) Aspartate Amino Transferase (AST) 18 U/L (15-37) Alanine Aminotransferase (ALT) 18 U/L (14-59) Alkaline Phosphatase 64 U/L (46-116) Creatine Kinase 66 U/L (26-192) Creatine Kinase MB (Mass) 1.2 ng/mL (0.0-3.6) Creatine Kinase MB Relative Index % (0-4) Troponin I Quantitative < 0.017 ng/mL (0.000-0.055) GH-Evy-Q-Type Natriuretic Peptide 1669 pg/mL (0-449) H Total Protein 7.0 g/dL (6.4-8.2) Albumin 3.5 g/dL (3.4-5.0) Albumin/Globulin Ratio 1.0 (1.0-1.7) Lipase 108 U/L (73-393) Urine Collection Type Unknown Urine Color Yellow Urine Clarity Clear Urine pH 6.5 (<5.0-8.0) Urine Specific [place] 1.010 (1.000-1.030) Urine Protein Negative mg/dL (NEG-TRACE) Urine Glucose (UA) Negative mg/dL (NEG) Urine Ketones (Stick) Negative mg/dL (NEG) Urine Blood Negative (NEG) Urine Nitrite Negative (NEG) Urine Bilirubin Negative (NEG) Urine Urobilinogen Dipstick 0.2 mg/dL (0.2 mg/dL) Urine Leukocyte Esterase Negative (NEG) Urine RBC 0 /HPF (0-2) Urine WBC Occ /HPF (0-4) Urine Squamous Epithelial Cells Many /LPF Urine Bacteria Many /HPF (0-FEW) Laboratory Tests 11/04/19 17:35 Laboratory Tests 11/04/19 17:35 Vital Signs: Vital Signs Date Time Temp Pulse Resp B/P (MAP) Pulse Ox O2 Delivery O2 Flow Rate FiO2 11/04/19 17:15 98.0 70 16 212/95 (134) 100 Room Air 98.0 (OPAL COATES APRN) EKG: EK-sinus rhythm, rate of 80, no STEMI, read by Dr. Lemus [] (OPAL COATES APRN) Radiology/Procedures: Radiology/Procedures: PROCEDURE: CT HEAD WO CONTRAST INDICATION: Reason: dizzy / Spl. Instructions: / History: COMPARISON: None. TECHNIQUE: Axial CT images obtained through the head without intravenous contrast. One or more of the following individualized dose reduction techniques were utilized for this examination: 1. Automated exposure control; 2. Adjustment of the mA and/or kV according to patient size; 3. Use of iterative reconstruction technique. FINDINGS: No intracranial hemorrhage. No midline shift. Basal cisterns patents. Ventricles and sulci are globally prominent. No acute osseous abnormality. Orbits and paranasal sinuses unremarkable. Scattered foci of low attenuation within the white matter. IMPRESSION: 1. No acute intracranial hemorrhage. 2. Scattered regions of low attenuation within the white matter. Non-specific in nature but frequently secondary to chronic small vessel ischemic disease. 3. Prominence of ventricles and sulci which is frequently secondary to age related volume loss. 4. Partial opacification of the left mastoid air cells. Could be from congestion but would correlate with symptoms to ensure that there is not mastoiditis. Electronically signed by: Ish Frias MD (11/04/2019 7:02 PM) [] PROCEDURE: CHEST AP ONLY INDICATION: Reason: chest pain / Spl. Instructions: / History: COMPARISON: September 2018 FINDINGS: Single view of chest obtained. Calcific atherosclerosis with mild enlargement of the cardiac silhouette. Mild interstitial opacities bilaterally with more focal component at right lung base IMPRESSION: * Mild interstitial opacities bilaterally with more focal component in the right lung base. This could be seen with mild edema or interstitial infiltrate. (OPAL COATES APRN) Course & Med Decision Making: Course & Med Decision Making Pertinent Labs and Imaging studies reviewed. (See chart for details) 89-year-old female presents emergency department with complaints of elevated blood pressure today and intermittent dizziness and weakness for the last 3 weeks. NIH stroke scale was negative. Work-up included labs, CT head, EKG, and IV labetalol. CBC revealed a hemoglobin of 11.4, hematocrit of 34.1 otherwise unremarkable; PT/INR within normal limits; CMP is unremarkable, troponin was less than 0.017, CK index is within normal limits, patient is BNP was 1669; UA was unremarkable. The patient's blood pressure was elevated initially. She was given 10 mg of IV labetalol after the CT head was negative her blood pressure improved to 167/74 at discharge. The patient reported that she felt better. I prescribed the patient clonidine 0.1 mg tablets to take if her systolic blood pressure was greater than 180 or diastolic blood pressure was greater than 105. I recommended that patient follows up with her primary care doctor in the next 1 to 2 days for reevaluation. Instructed the patient to return to the ER symptoms worsen. Patient and her daughter verbalized an understanding of home care, medications, follow-up, and return to ED instructions and were in agreement with the plan of care. [] (OPAL COATES APRN) Dragon Disclaimer: Dragon Disclaimer: This electronic medical record was generated, in whole or in part, using a voice recognition dictation system. (OPAL COATES APRN) Departure Departure Impression: Primary Impression: HTN (hypertension) Qualified Codes: I10 - Essential (primary) hypertension Disposition: HOME, SELF-CARE Condition: STABLE Referrals: BEATA DAVIES MD (PCP) Patient Instructions: Hypertension, [id number] Additional Instructions: Fill the prescription and take it if your blood pressure is greater than 185/105. Follow-up with your primary care doctor in 1 to 2 days. Return to the ER if symptoms worsen. Scripts Clonidine Hcl (CLONIDINE HCL) 0.1 Mg Tablet 0.1 MG PO BID PRN for PER PROTOCOL for 20 Days, #40 TAB take 1 tablet twice daily if your blood pressure is greater than 180/105 Prov: OPAL COATES APRN 11/04/19 Justicifation of Admission Dx: Justifications for Admission: Justification of Admission Dx: N/A (OPAL COATES APRN) NIHSS Stroke Scale NIH Stroke Scale: NIH Stroke Scale Response (Comments) Value Level of Consciousness: 0 Alert/Responsive 0 LOC Questions: 0 Answers both correctly 0 LOC Commands: 0 Performs both tasks 0 Best Gaze: 0 Normal 0 Visual: 0 No visual loss 0 Facial Palsy: 0 Normal, symmetrical 0 Motor - Left Arm 0 No drift 0 Motor - Right Arm 0 No drift 0 Motor - Left Leg 0 No drift 0 Motor: Right Leg 0 No drift 0 Limb Ataxia: 0 Absent 0 Sensory: 0 No loss 0 Best Language: 0 Normal 0 Dysathria: 0 Normal 0 Extinction and Inattention: 0 Normal 0 Total 0 Attending Signature Attending Signature I have reviewed the PA/HOT SHOT's note and plan of care. I was available for consultation as needed during the patient's visit in the emergency department. I agree with the clinical impression, plan, and disposition. (HAZEL HENDRICKSON DO) OPAL COATES APRN Nov 04, 2019 19:26 HAZEL HENDRICKSON DO Nov 05, 2019 01:49
[2019-11-04 21:15] VITALS: BP 173/72
[2019-11-04] MEDS ORDERED: CLON0.1T PO (21:17)
--- NOTE | 2019-11-05 06:33 | EKG ---
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
== END 2019-11-04 21:43 | disposition home or self-care (01) ==
LOC: ER 14:30
DX: I10 Essential (primary) hypertension (principal); R42 Dizziness and giddiness; R53.1 Weakness; J45.909 Unspecified asthma, uncomplicated
CPT/HCPCS: 36415; 70450; 71045; 80053; 81001; 82553; 83690; 83735; 83880; 84484; 85025; 85610; 85730; 87086; 93005; 96374; 99285; J3490; 87077; 87186

== ENCOUNTER → 2020-04-11 | Outpatient (CLI) | payer MEDICARE ==
[~2020-04-11] MED LIST changes: +CLON0.1T PO
[2020-04-11 12:28] LABS: ALBUMIN 3.7 g/dL (3.4-5.0); ALBUMIN/GLOBULIN RATIO 0.9 (1.0-1.7); CALCIUM 9.3 mg/dL (8.5-10.1); CREATININE 1.1 mg/dL (0.6-1.0); GFR 56.7; POTASSIUM 3.9 mmol/L (3.5-5.1); TOTAL BILIRUBIN 0.4 mg/dL (0.2-1.0); TOTAL PROTEIN 7.6 g/dL (6.4-8.2)
== END ==
LOC: LAB 11:50
PROVIDERS: ATTEND Internal Medicine Cardiovascular Disease
DX: I10 Essential (primary) hypertension (principal)
CPT/HCPCS: 36415; 80053

== ENCOUNTER → 2020-04-26 | Outpatient (CLI) | payer MEDICARE ==
--- NOTE | 2020-04-26 17:19 | CARD ---
MR#: [id number] Date of Study: 04/26/2020 Ordering Physician: COMFORT HWANG, Referring Physician: COMFORT HWANG, Tech: Judith Cole [facility] APPROVED REPORT EXAM: Two-dimensional and M-mode echocardiogram with Doppler and color Doppler. Other Information Quality : Good Rhythm : Atrial Fibrillation INDICATION Arrhythmia RISK FACTORS Hypertension 2D DIMENSIONS RVDd3.4 (2.9-3.5cm)Left Atrium(2D)4.3 (1.6-4.0cm) IVSd1.0 (0.7-1.1cm)Aortic Root(2D)3.0 (2.0-3.7cm) LVDd4.6 (3.9-5.9cm)LVOT Diameter1.6 (1.8-2.4cm) PWd1.0 (0.7-1.1cm)LVDs3.4 (2.5-4.0cm) FS (%) 25.2 %SV48.3 ml LVEF(%)49.9 (>50%) Aortic Valve AoV Peak Balbir.186.9cm/sAoV VTI39.3cm AO Peak GR.14.0mmHgLVOT Peak Balbir.76.5cm/s AO Mean GR.7mmHgAVA (VMAX)0.83cm2 AI P 1/2 [id number] Mitral Valve MV E Anyedvhe07.6cm/sMV DECEL [id number] MV A Bgxvxnmp933.5cm/sE/A Ratio0.7 Pulmonary Valve PV Peak Raaetyki81.1cm/s LEFT VENTRICLE The Left Ventricle is moderately dilated. There is normal left ventricular wall thickness. The left v entricular systolic function is mildly decreased. EF 45% There is mild global hypokinesis. Septal mot ion suggestive of conduction defect. Tissue Doppler imaging reveals moderate left ventricular diastol ic dysfunction. RIGHT VENTRICLE The right ventricle is normal size. There is normal right ventricular wall thickness. The right ventr icular systolic function is normal. ATRIA The left atrium size is normal. The right atrium size is normal. The interatrial septum is intact wit h no evidence for an atrial septal defect or patent foramen ovale as noted on 2-D or Doppler imaging. AORTIC VALVE The aortic valve is normal in structure and function. Doppler and Color Flow revealed mild aortic reg urgitation. There is no significant aortic valvular stenosis. MITRAL VALVE The mitral valve is normal in structure and function. There is no evidence of mitral valve prolapse. There is no mitral valve stenosis. Doppler and Color-flow revealed mild mitral regurgitation. TRICUSPID VALVE The tricuspid valve is normal in structure and function. Doppler and Color Flow revealed mild to mode rate tricuspid regurgitation. Estimated PAP 35 mmHg. There is no tricuspid valve stenosis. PULMONIC VALVE Doppler and Color Flow revealed moderate pulmonic valvular regurgitation. There is no pulmonic valvul ar stenosis. GREAT VESSELS The aortic root is normal in size. The ascending aorta is normal in size. The IVC is normal in size a nd collapses >50% with inspiration. PERICARDIAL EFFUSION There is no evidence of significant pericardial effusion. Critical Notification Critical Value: No <Conclusion> The Left Ventricle is moderately dilated. The left ventricular systolic function is mildly decreased. EF 45% There is mild global hypokinesis. Septal motion suggestive of conduction defect. Doppler and Color-flow revealed mild mitral regurgitation. Doppler and Color Flow revealed mild to moderate tricuspid regurgitation. Estimated PAP 35 mmHg. Signed by : Gus Vasquez, Electronically Approved : 04/26/2020 17:18:34
== END ==
LOC: ECHO 14:41
PROVIDERS: ATTEND Internal Medicine Cardiovascular Disease
DX: I08.8 Other rheumatic multiple valve diseases (principal); I25.10 Atherosclerotic heart disease of native coronary artery without angina pectoris
CPT/HCPCS: 93306

== ENCOUNTER → 2020-05-23 | Outpatient (CLI) | payer MEDICARE ==
--- NOTE | 2020-05-23 19:31 | KCIC ---
Bilateral digital screening mammograms with 3-D tomosynthesis: Reason for examination: Routine screening. History of right breast cancer with lumpectomy. Comparison is made to previous studies dated back to 04/05/2015. Bilateral mammograms in CC and oblique projections were obtained with 2-D imaging and 3-D tomosynthes is imaging on a Siemens Inspiration unit and reviewed on the workstation. Interpretation was made wit h the benefit of CAD. The skin and nipples show no abnormalities. No abnormal axillary lymph nodes are seen. The breast par enchyma is heterogeneously dense. (Breast density: Category C.) There continue to be small parenchyma l asymmetries bilaterally which are stable. There are scattered and clustered calcifications bilatera lly which are stable. There are no new dominant masses, suspicious calcifications or architectural di stortion. Impression: Postop changes in the right breast. No evidence of new or recurrent malignancy. Recommend routine scr eening. Your patient's mammogram demonstrates that she has dense breast tissue (breast density category C or D), which could hide abnormalities, and if she has other risk factors for breast cancer that have bee n identified, she might benefit from supplemental screening tests that may be suggested by you as her ordering physician. Dense breast tissue, in and of itself, is a relatively common condition. Therefo re, this information is not provided to cause undue concern, but rather to raise your awareness and t o promote discussion with your patient regarding the presence of other risk factors, in addition to d ense breast tissue. Your patient's mammography results will be sent to her. BI-RAD Category 2: Benign. "Our facility is accredited by the [employer] Mammography [employer]." This patient's information has been entered into a reminder system for the patient to be notified wit h the results of her examination and a target date for the next mammogram. Electronically signed by: Ivania Napier MD (05/23/2020 7:28 PM) [id number]
== END ==
LOC: KCIC MAMMO 09:59
PROVIDERS: ATTEND Family Medicine
DX: Z12.31 Encounter for screening mammogram for malignant neoplasm of breast (principal)
CPT/HCPCS: 77063; 77067

== ENCOUNTER → 2020-10-11 | Outpatient (CLI) | payer MEDICARE ==
[~2020-10-11] MED LIST changes: +REGADENOSON 0.4 MG/5 ML DISP.SYRIN. IV ONE
--- NOTE | 2020-10-11 18:07 | RAD ---
MR#: [id number] Date of Study: 10/11/2020 Ordering Physician: COMFORT BLANKENSHIP, Referring Physician: TAI PETERSON Tech: MACARENA Olsen APPROVED REPORT Test Type: Pharmacological Stress Nurse/Tech: Shira Vanegas R.N. Test Indications: CAD Cardiac History: stent September 2018 Medications: see EHR Medical History: See Electronic Medical Record Resting ECG: SR w/ pac's and pvc's Resting Heart Rate: 80 bpm Resting Blood Pressure: 167/69mmHg Pretest Chest Pain: No chest pain Nurse/Tech Notes S1S2, lungs CTA Consent: The procedure was explained to the patient in lay terms. Informed consent was witnessed. Sudeep eout was entered into [employer]. History and Stress Test performed by MACARENA Olsen Pharm. Details Pharmacologic stress testing was performed using 0.4mg per 5ml of regadenoson given intravenously ove r 7-10 seconds. Stress Symptoms SOA, feeling "weird" POST EXERCISE Reason for Termination: Infusion complete Max HR: 123 bpm Max Blood Pressure: 162/75mmHg Blood Pressure response to exercise: Normal blood pressure response during stress. Heart Rate response to exercise: wnl Chest Pain: No. Arrhythmia: No. no changes from abnormal baseline ST Change: N. INTERPRETATION Stress EKG Conclusion: The resting EKG shows a sinus rhythm with a septal Q wave and nonspecific ST s egment changes. The stress EKG shows no significant changes from baseline. No EKG evidence of stress-induced ischemia. Imaging Protocol IMAGE PROTOCOL: Rest Tc-99m/stress Tc-99m 1 day Rest: Stress: Viability: Radiopharm.Tc99m FcnltvorcPp43s Sestamibi Dose10.4mCi 30mCi Duration 15min. 10min. Img Date 10/11/2020 10/11/2020 Inj-Img [id number]. 60min. Rest Admin Site:IV - Right AntecubitalAdministrator:MACARENA Olsen Stress Admin Site: IV - Right AntecubitalAdministrator: MO De La Torre, ARRT (R)(N) STRESS DATA End Diast. Vol.74.0mlAv. Heart Rate82.0bpm End Syst. Vol.26.0mlCO Index BSA0.0L/min Myocardial Avhe457.0gEject. Rznamcun07.0% Stress Rates Pk. Fill Rate3.39EDV/secLVtime Pk. Fill 221.58msec Pk. Empty Rate3.32ESV/secLVtime Pk. Eject78.93msec /3 Pk. Fill0.88EDV/sec Stress Scores Regional WT2.00Summed WT18.00 Regional WM0.00Summed WM5.00 LV Perfusion The stress scans show borderline mild inferior lateral thinning. The rest scans show borderline mild inferior lateral wall thinning. Nuclear imaging shows no reversible ischemia. Nuclear imaging shows borderline fixed inferior lateral wall thinning most suggestive of an attenuati on defect. Wall Motion Left ventricular systolic function is normal with an ejection fraction of 64%. LV Perf. Quant 17 Seg. SSS14.00 17 Seg. SRS16.00 17 Seg. SDS0.00 Stress Defect Extent (% LAD)30.60Rest Defect Extent (% LAD)35.00Rev. Defect Extent (% LAD)0.00 Stress Defect Extent (% LCX) 50.00Rest Defect Extent (% LCX)70.00Rev. Defect Extent (% LCX)0.00 Stress Defect Extent (% RCA)2.20Rest Defect Extent (% RCA)3.30Rev. Defect Extent (% RCA)0.00 Stress Defect Extent (% BRIT)30.70Rest Defect Extent (% BRIT)35.20Rev. Defect Extent (% BRIT)0.40 Conclusion 1. No EKG evidence of stress-induced ischemia. 2. Nuclear imaging shows no reversible ischemia. 3. Nuclear imaging shows a borderline fixed area in the inferior lateral wall most suggestive of atte nuation defect. 4. Normal left ventricular function with an ejection fraction of 64%. 5. Moderately low risk Lexiscan nuclear stress test with good LV function and no reversible ischemia. Signed by : Comfort Blankenship MD Electronically Approved : 10/11/2020 18:06:36
== END ==
LOC: NM 09:09
PROVIDERS: ATTEND Internal Medicine Cardiovascular Disease
DX: I25.10 Atherosclerotic heart disease of native coronary artery without angina pectoris (principal)
CPT/HCPCS: 78452; 93017; A9500; J2785

== ENCOUNTER → 2020-12-05 | Outpatient (CLI) | payer MEDICARE ==
[~2020-12-05] MED LIST changes: +IOHEXOL 300 MG/ML 50 ML VIAL. INT ART ONE; +LIDOCAINE 1% Multi-Dose 20 ML VIAL. ID ONE; +POTA-121 PO; -REGADENOSON 0.4 MG/5 ML DISP.SYRIN. IV ONE
--- NOTE | 2020-12-06 08:28 | KCIC ---
Study: Fluoroscopically guided arthrogram of the left shoulder joint for CT Indication: Left shoulder pain. Contrast: 10 cc Omnipaque 300 Technique: A timeout was performed prior to beginning the procedure in order to confirm patient identity and lat erality of the injection. The risks, benefits and alternatives of the procedure were discussed. Utilizing sterile technique, fluoroscopic guidance and local anesthesia with 1% lidocaine, the left s houlder joint was accessed utilizing a 22-gauge, 3.5" spinal needle. Confirmation of needle position was obtained with a small amount of radiopaque contrast. Subsequently, approximately 12 cc of a mixtu re containing 10 cc Omnipaque 310 cc lidocaine was injected. There were no immediate post procedure c omplications. Fluoroscopy time: 45 seconds Number of images obtained: 1 Impression: Technically successful fluoroscopic guided arthrogram of the left shoulder joint without immediate po stprocedure complication. Electronically signed by: VA CASON MD (12/06/2020 8:26 AM) [id number]
--- NOTE | 2020-12-06 08:48 | KCIC ---
STUDY: CT of the left upper extremity with intra-articular contrast - CT arthrogram INDICATION: Chronic left shoulder pain. COMPARISON: No prior dedicated cross-sectional imaging of the left shoulder. TECHNIQUE: Axial CT imaging of the left upper extremity/shoulder performed with intra-articular contr ast. The injection portion of the procedure is detailed separately. Coronal and sagittal reformats we re obtained. One or more of the following individualized dose reduction techniques were utilized for this examinat ion: 1. Automated exposure control 2. Adjustment of the mA and/or kV according to patient size 3. Use of iterative reconstruction technique. FINDINGS: AC joint: Arthrosis is mild. Injected contrast distends the subacromial subdeltoid bursa in keeping w ith a full-thickness rotator cuff tear. Contrast also extends into the subcoracoid bursa. Rotator cuff: Full-thickness, fullwidth tearing of the supraspinatus and infraspinatus. The torn tend on stumps or medially retracted to the glenoid. Insertional fibers are seen at the footprint indicate d that the large tear likely initiated at the critical zone. Correspondingly there is diffuse atrophy in addition to fatty infiltration of the supraspinatus and infraspinatus. The teres minor remains in tact and teres minor muscular bulk within normal limits. The subscapularis is mostly intact with main tained muscular bulk. Labrum: Degenerative blunting along the entire posterior half of the labrum. Long head biceps. Tendinotic but intact. Cartilage: High-grade/full-thickness chondral loss seen along the upper half of the glenoid. Full-thi ckness chondral loss at the superior humeral head. Bones: Glenohumeral joint arthrosis with small osteophyte formation and some remodeling at the tubero sities. Osteopenia. Miscellaneous: Mild synovitis/bursitis. Axillary lymph nodes are within normal limits. IMPRESSION: 1. 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 Correspondingly there is advanced atrophy and fatty infi ltration of the supraspinatus and infraspinatus muscle bellies. No high-grade or full-thickness tear of either the subscapularis or teres minor. 2. Degenerative blunting of the labrum best seen along its posterior half. Tendinotic but intact gladis g head biceps. 3. Glenohumeral joint arthrosis with full-thickness chondral loss at the superior humeral head and h igh-grade/full-thickness chondral loss at the upper half of the glenoid. Arthrosis at the AC joint is relatively mild considering patient age. Electronically signed by: VA CASON MD (12/06/2020 8:46 AM) [id number]
== END | disposition home or self-care (01) ==
LOC: KCIC 13:10
PROVIDERS: ATTEND Physician Assistant
DX: M25.512 Pain in left shoulder (principal); M19.012 Primary osteoarthritis, left shoulder; M75.52 Bursitis of left shoulder; M85.812 Other specified disorders of bone density and structure, left shoulder; I10 Essential (primary) hypertension; J45.909 Unspecified asthma, uncomplicated; K21.9 Gastro-esophageal reflux disease without esophagitis; Z85.3 Personal history of malignant neoplasm of breast; Z79.82 Long term (current) use of aspirin; Z79.899 Other long term (current) drug therapy; Z98.890 Other specified postprocedural states; Z88.8 Allergy status to other drugs, medicaments and biological substances
CPT/HCPCS: 23350; 73201; 77002; J3490; Q9967

== ENCOUNTER → 2021-05-25 | Outpatient (CLI) | payer MEDICARE ==
[~2021-05-25] MED LIST changes: -IOHEXOL 300 MG/ML 50 ML VIAL. INT ART ONE; -LIDOCAINE 1% Multi-Dose 20 ML VIAL. ID ONE; +TERB250T72 PO; -TERB250T84 PO
--- NOTE | 2021-05-26 09:34 | KCIC ---
Bilateral digital screening 2-D and 3-D (tomosynthesis) mammogram: Reason for examination: Routine screening. Personal history of right breast carcinoma with lumpectomy in 2010. Comparison is made to previous mammograms from 05/22/2019, the 05/23/2020, 04/17/2018, 04/11/2017. Bilateral mammograms in CC and oblique projections were obtained with 2-D imaging and 3-D tomosynthes is imaging and reviewed on the workstation. Interpretation was made with the benefit of CAD. Findings: Breast density: Category C. The breasts are heterogeneously dense, which may obscure small masses. There are no new suspicious masses, malignant appearing calcifications or architectural distortion. T here are stable post therapeutic changes on the right. There are multiple similar groups of calcifica tions in both breasts with degenerating fibroadenomas. There is large popcorn-type calcification in t he right breast anteriorly from calcified fibroadenoma. There is nodularity associated with the biops y marker in the left upper outer quadrant which is stable. Impression: No evidence of malignancy. ASSESSMENT: BI-RADS 2. Benign findings. Recommendations: Routine screening mammograms. This patient's information has been entered into a reminder system for the patient to be notified wit h the results of her examination and a target date for the next mammogram. Your patient's mammogram demonstrates that she has dense breast tissue (breast density category C or D), which could hide abnormalities, and if she has other risk factors for breast cancer that have bee n identified, she might benefit from supplemental screening tests that may be suggested by you as her ordering physician. Dense breast tissue, in and of itself, is a relatively common condition. Therefo re, this information is not provided to cause undue concern, but rather to raise your awareness and t o promote discussion with your patient regarding the presence of other risk factors, in addition to d ense breast tissue. Electronically signed by: Georgina Dodson MD (05/26/2021 9:31 AM) [id number]
== END ==
LOC: KCIC MAMMO 13:50
PROVIDERS: ATTEND Family Medicine
DX: Z12.31 Encounter for screening mammogram for malignant neoplasm of breast (principal)
CPT/HCPCS: 77063; 77067

== ENCOUNTER → 2021-07-17 | Outpatient (CLI) | payer MEDICARE ==
--- NOTE | 2021-07-18 08:55 | RAD ---
MR#: [id number] Date of Study: 07/17/2021 Ordering Physician: COMFORT HWANG, Referring Physician: COMFORT HWANG, Tech: Atif Lai MBA, RDMS, RVT, RDCS, RTR APPROVED REPORT Patient Location: OUT-PATIENT Indications Rest Pain:Bilaterally Edema VELOCITY AND DOPPLER WAVEFORM ANALYSIS RIGHT cm/secWaveformSeverity LEFT cm/secWaveform Severity dCFA 97.0BiphasicdCFA 90.0Biphasic Prof Fem Art. 86.0BiphasicProf Fem Art. 91.0Biphasic Fem Art Prox. 101.0BiphasicFem Art Prox. 80.0Biphasic Fem Art Mid. 104.0BiphasicFem Art Mid. 148.0Biphasic Fem Art Dist. 114.0BiphasicFem Art Dist. 125.0Biphasic Pop Art(Fossa) 98.0BiphasicPop Art([place]) 173.0Biphasic P[employer]AGE C[employer] SUPERVISOR Prox. 59.0BiphasicPTA Prox. 81.0Biphasic PACKAGE CENTER SUPERVISOR Dist. 64.0BiphasicPTA Dist. 82.0Biphasic Per Art Mid. 100.0BiphasicPer Art Mid. 93.0Biphasic ROSE Prox. 35.0BiphasicATA Prox. 39.0Biphasic DPA 12MonophasicDPA 22Biphasic Findings Grayscale images of peripheral arteries bilateral lower extremities showed mild diffuse atheroscleros is. Spectral waveform and color duplex analysis showed biphasic waveforms with normal velocities jj ateral common femoral, deep femoral, superficial femoral and right popliteal arteries. The left popl iteal artery showed slightly increased velocities consistent with moderate stenosis. There is three- vessel runoff below the knee bilaterally with normal velocities and biphasic waveforms. The right do rsalis pedis artery showed decreased velocities with monophasic waveforms suggestive of moderate diff use disease. No significant peripheral artery stenosis was noted. Critical Notification Critical Value: No <Conclusion> Bilateral lower extremity arterial duplex scan did not show any significant peripheral artery stenosi s Signed by : Carroll Walker, Electronically Approved : 07/18/2021 08:54:48
== END ==
LOC: US 15:00
PROVIDERS: ATTEND Internal Medicine Cardiovascular Disease
DX: I70.203 Unspecified atherosclerosis of native arteries of extremities, bilateral legs (principal)
CPT/HCPCS: 93925